=== PATIENT | female | born 1990 | race Caucasian/White ===

== ENCOUNTER 2016-11-09 13:34 | Emergency (ER) | payer MEDICAID ==
[~2016-11-09] VITALS: Ht 160 cm; Wt 61.2 kg
--- NOTE | 2016-11-09 14:08 | ED General ---
General Chief Complaint: Abdominal/GI Problems Stated Complaint: ABD PAIN/VOMITING 9 WKS PREG Source of Information: Patient Exam Limitations: No Limitations History of Present Illness Time Seen by Provider: 14:07 Initial Comments To ER with abdominal pain, vomiting, pain in her bones and skin from her hair to her toenails that just started today. She is 9 weeks gestation and just had an outpatient ultrasound done here earlier today. She does not have vaginal bleeding. She also reports constipation with no bowel movement for 2 weeks. She has seen the [facility] in [place] for this, [facility] at [place] for this. She states that she did have an abdominal x-ray done to evaluate her constipation 2 days ago at [facility] in [place] and was told this was normal. Timing/Duration: 1-2 Days Severity: Moderate Associated Systoms: Nausea/Vomiting Allergies and Home Medications Allergies Coded Allergies: codeine (Verified Allergy, Unknown, 11/09/16) phenazopyridine (Verified Allergy, Unknown, 11/09/16) promethazine (Verified Allergy, Unknown, 11/09/16) Home Medications Cephalexin 500 Mg Capsule, 500 MG PO TID for 15 Days, #15 Prescribed by: WHIT SNELL on 11/09/16 1540 Ondansetron 8 Mg Tab.rapdis, 8 MG PO Q6H PRN for NAUSEA/VOMITING-1ST LINE, #5 Prescribed by: WHIT SNELL on 11/09/16 1539 Polyethylene Glycol 3350 17 Gm Powd.pack, 17 GM PO BID, #8 Prescribed by: WHIT SNELL on 11/09/16 1539 Constitutional: see HPI EENTM: see HPI Respiratory: no symptoms reported Cardiovascular: no symptoms reported Genitourinary: no symptoms reported Musculoskeletal: no symptoms reported Skin: no symptoms reported Psychiatric/Neurological: No Symptoms Reported Hematologic/Lymphatic: No Symptoms Reported Past Zromhnr-Ptzppq-Vljadx Hx Patient Social History Recent Foreign Travel: No Contact w/Someone Who Travel: No Physical Exam Vital Signs Vital Sign - Last 12Hours 11/09/16 11/09/16 14:04 17:25 Temp 97.5 Pulse 88 Resp 18 B/P (MAP) 125/87 Pulse Ox 98 Capillary Refill : General Appearance: No Apparent Distress, WD/WN, Other (tearful, sobbing saying that she hurts everywhere) HEENT: PERRL/EOMI, TMs Normal Neck: Full Range of Motion, Normal Inspection Respiratory: No Accessory Muscle Use, No Respiratory Distress Gastrointestinal: Soft, Other (bowel sounds are normal. Abdomen is flat. It is tender to palpation) Extremity: Normal Capillary Refill, Normal Inspection Neurologic/Psychiatric: Alert, Oriented x3, No Motor/Sensory Deficits Skin: Normal Color, Warm/Dry Progress/Results/Core Measures Results/Orders Lab Results Laboratory Tests Test 11/09/16 14:20 11/09/16 15:15 Range/Units White Blood Count 10.0 4.3-11.0 10^3/uL Red Blood Count 4.75 4.35-5.85 10^6/uL Hemoglobin 14.6 11.5-16.0 G/DL Hematocrit 40 35-52 % Mean Corpuscular Volume 85 80-99 FL Mean Corpuscular Hemoglobin 31 25-34 PG Mean Corpuscular Hemoglobin Concent 36 32-36 G/DL Red Cell Distribution Width 11.4 10.0-14.5 % Platelet Count 290 130-400 10^3/uL Mean Platelet Volume 9.8 7.4-10.4 FL Neutrophils (%) (Auto) 77 H 42-75 % Lymphocytes (%) (Auto) 16 12-44 % Monocytes (%) (Auto) 6 0-12 % Eosinophils (%) (Auto) 0 0-10 % Basophils (%) (Auto) 0 0-10 % Neutrophils # (Auto) 7.7 1.8-7.8 X 10^3 Lymphocytes # (Auto) 1.6 1.0-4.0 X 10^3 Monocytes # (Auto) 0.6 0.0-1.0 X 10^3 Eosinophils # (Auto) 0.0 0.0-0.3 10^3/uL Basophils # (Auto) 0.0 0.0-0.1 10^3/uL Sodium Level 135 135-145 MMOL/L Potassium Level 3.9 3.6-5.0 MMOL/L Chloride Level 100 98-107 MMOL/L Carbon Dioxide Level 22 21-32 MMOL/L Anion Gap 13 5-14 MMOL/L Blood Urea Nitrogen 8 7-18 MG/DL Creatinine 0.71 0.60-1.30 MG/DL Estimat Glomerular Filtration Rate > 60 BUN/Creatinine Ratio 11 Glucose Level 89 70-105 MG/DL Calcium Level 9.8 8.5-10.1 MG/DL Human Chorionic Gonadotropin, Quant 702568 H <5 MIU/ML Urine Color YELLOW Urine Clarity SLIGHTLY CLOUDY Urine pH 6 5-9 Urine Specific Comfort 1.020 1.016-1.022 Urine Protein 2+ H NEGATIVE Urine Glucose (UA) NEGATIVE NEGATIVE Urine Ketones 4+ H NEGATIVE Urine Nitrite NEGATIVE NEGATIVE Urine Bilirubin NEGATIVE NEGATIVE Urine Urobilinogen NORMAL NORMAL MG/DL Urine Leukocyte Esterase 2+ H NEGATIVE Urine RBC (Auto) NEGATIVE NEGATIVE Urine RBC NONE /HPF Urine WBC 10-25 H /HPF Urine Squamous Epithelial Cells 10-25 H /HPF Urine Crystals NONE /LPF Urine Bacteria MODERATE H /HPF Urine Casts NONE /LPF Urine Mucus LARGE H /LPF Urine Culture Indicated YES Urine Opiates Screen NEGATIVE NEGATIVE Urine Oxycodone Screen POSITIVE H NEGATIVE Urine Methadone Screen NEGATIVE NEGATIVE Urine Propoxyphene Screen NEGATIVE NEGATIVE Urine Barbiturates Screen NEGATIVE NEGATIVE Ur Tricyclic Antidepressants Screen NEGATIVE NEGATIVE Urine Phencyclidine Screen NEGATIVE NEGATIVE Urine Amphetamines Screen NEGATIVE NEGATIVE Urine Methamphetamines Screen NEGATIVE NEGATIVE Urine Benzodiazepines Screen POSITIVE H NEGATIVE Urine Cocaine Screen NEGATIVE NEGATIVE Urine Cannabinoids Screen POSITIVE H NEGATIVE My Orders Orders - WHIT SNELL FINANCE ASSOCIATE Cbc With Automated Diff (11/09/16 14:06) Basic Metabolic Panel (11/09/16 14:06) Ua Culture If Indicated (11/09/16 14:06) Hcg,Quantitative (11/09/16 14:06) Ondansetron Oral Dissolve Tab (Zofran (11/09/16 14:15) Diphenhydramine Tablet (Benadryl Tablet) (11/09/16 14:15) Fentanyl Injection (Sublimaze Injection (11/09/16 14:45) Drug Screen Stat (Urine) (11/09/16 14:44) Diphenhydramine Injection (Benadryl Inje (11/09/16 15:15) Diphenhydramine Injection (Benadryl Inje (11/09/16 15:08) Ns Iv 1000 Ml (Sodium Chloride 0.9%) (11/09/16 15:30) Progesterone (11/09/16 15:36) Urine Culture (11/09/16 15:15) Ns Iv 1000 Ml (Sodium Chloride 0.9%) (11/09/16 15:45) Ceftriaxone Injection (Rocephin Injectio (11/09/16 15:45) Ondansetron Injection (Zofran Injectio (11/09/16 17:15) Medications Given in ED Current Medications Medications Dose Ordered Sig/Alli Route Start Time Stop Time Status Last Admin Dose Admin Ceftriaxone Sodium 1000 mg/ Sodium Chloride 50 ml @ 100 mls/hr ONCE ONCE IV 11/09/16 15:45 11/09/16 16:14 DC 11/09/16 15:49 100 MLS/HR Diphenhydramine HCl 25 mg ONCE ONCE IVP 11/09/16 15:15 11/09/16 15:16 DC 11/09/16 15:12 25 MG Diphenhydramine HCl 25 mg ONCE ONCE PO 11/09/16 14:15 11/09/16 14:16 DC 11/09/16 14:24 25 MG Fentanyl Citrate 50 mcg ONCE ONCE IVP 11/09/16 14:45 11/09/16 14:46 DC 11/09/16 14:56 50 MCG Ondansetron HCl 4 mg ONCE ONCE IVP 11/09/16 17:15 11/09/16 17:17 DC 11/09/16 17:15 4 MG Ondansetron HCl 4 mg ONCE ONCE PO 11/09/16 14:15 11/09/16 14:16 DC 11/09/16 14:24 4 MG Vital Signs/I&O Vital Sign - Last 12Hours 11/09/16 11/09/16 11/09/16 14:04 14:56 17:25 Temp 97.5 97.5 97.5 Pulse 88 70 Resp 18 B/P (MAP) 125/87 Pulse Ox 98 99 Diagnostic Imaging Diagonstic Imaging: Ultrasound Comments VIA [facility]. [place], [place] NAME: JEWELL ANNE [facility] REC#: [id number] PT STATUS: REG CLI : 1990 PHYSICIAN: ROSE RILEY ADMIT DATE: 11/09/16/RAD Draft Date of Exam:11/09/16 US OB SINGLE FETUS<14 [id number] PROCEDURE: US OB SINGLE FETUS <14 WKS. TECHNIQUE: Multiple real-time grayscale images were obtained over the gravid uterus in various projections. Indication: Severe pelvic pain, threatened . Comparison: None. Discussion: Transabdominal sonographic evaluation of the pelvis was performed. Simple appearing saclike structures noted within the endometrium which likely represents an endometrial sac. Mean sac diameter is 3.3 cm. There is no pole or yolk sac identified. Findings are consistent with a failed intrauterine / demise. No abnormal adnexal mass or fluid. Impression: 1. Empty gestational sac is noted with mean sac diameter measuring 3.3 cm. Findings are consistent with failed early . Note to criminal justice program director: This is a critical finding, please call results. Report was called to Rose/LAKIA c/o Rose Riley by leta at 2:00 pm. Dictated on workstation # [id number] Dict: 11/09/16 1346 Trans: 11/09/16 1357 LETA [id number] Interpreted by: XIMENA CHAVIRA MD Electronically signed by: Departure Communication Progress Notes 2576-I've called [facility] [place] who reports that patient did have a quantitative beta hCG done 2 days ago that was 111,700. Today here it is 147,000 1536-after discussing the case with Dr. STEPHEN, we will treat this as a potentially viable given the rising beta hCG and hold off on the abdomen x-ray. Patient should follow-up with him on Saturday and he would like a serum progesterone ordered to her labs. Impression Impression: Primary Impression: Nausea and vomiting Additional Impression: Threatened miscarriage Disposition: 01 HOME, SELF-CARE Condition: Stable Departure-Patient Inst. Decision time for Depature: 15:04 Referrals: [facility] (PCP) Primary Care Physician LEEANN STEPHEN DENNIS G MD MCNULTY, ERIN N MD SHAW, ANGELA C DO Patient Instructions: Miscarriage (DC), Urinary Tract Infection, Adult (DC) Add. Discharge Instructions: 1. Call today or Saturday morning to make an appointment with one of the obstetricians 2. Expect vaginal bleeding to occur at some point during the next few days All discharge instructions reviewed with patient and/or family. Voiced understanding. Scripts Cephalexin (Keflex) 500 Mg Capsule 500 MG PO TID for 15 Days, #15 CAP Prov: WHIT SNELL FINANCE ASSOCIATE 11/09/16 Ondansetron (Zofran Odt) 8 Mg Tab.rapdis 8 MG PO Q6H Y for NAUSEA/VOMITING-1ST LINE, #5 TAB Prov: WHIT SNELL APRN 11/09/16 Polyethylene Glycol 3350 (Miralax) 17 Gm Powd.pack 17 GM PO BID, #8 EACH Prov: WHIT SNELL APRN 11/09/16 WHIT SNELL APRN Nov 09, 2016 14:08
[2016-11-09] MEDS ORDERED: diphenhydrAMINE 25 MG TAB (BENADRYL) PO ONE (14:15)
[2016-11-09] MEDS ORDERED: ONDANSETRON 4 MG (ZOFRAN) ORAL DISSOLVE TAB PO ONE (14:15)
[2016-11-09 14:39] LABS: BASOPHILS % (AUTO) 0 % (0-10); EOSINOPHILS % (AUTO) 0 % (0-10); LYMPHOCYTES # (AUTO) 1.6 X 10^3 (1.0-4.0); LYMPHOCYTES % (AUTO) 16 % (12-44); MEAN CORPUSCULAR HEMOGLOBIN 31 PG (25-34); MEAN CORPUSCULAR HGB CONC 36 G/DL (32-36); MEAN CORPUSCULAR VOLUME 85 FL (80-99); MEAN PLATELET VOLUME 9.8 FL (7.4-10.4); MONOCYTES # (AUTO) 0.6 X 10^3 (0.0-1.0); MONOCYTES % (AUTO) 6 % (0-12); NEUTROPHILS # (AUTO) 7.7 X 10^3 (1.8-7.8); NEUTROPHILS % (AUTO) 77 % (42-75); PLATELET COUNT 290 10^3/uL (130-400); RED BLOOD COUNT 4.75 10^6/uL (4.35-5.85); RED CELL DISTRIBUTION WIDTH 11.4 % (10.0-14.5)
[2016-11-09] MEDS ORDERED: fentaNYL INJECTION 100 MCG/2 ML AMP IVP ONE (14:45)
[2016-11-09 14:50] LABS: ANION GAP 13 MMOL/L (5-14); BLOOD UREA NITROGEN 8 MG/DL (7-18); BUN/CREATININE RATIO 11; CALCIUM 9.8 MG/DL (8.5-10.1); CARBON DIOXIDE 22 MMOL/L (21-32); CHLORIDE 100 MMOL/L (98-107); CREATININE SERUM 0.71 MG/DL (0.60-1.30); GFR ESTIMATED > 60; GLUCOSE 89 MG/DL (70-105); POTASSIUM 3.9 MMOL/L (3.6-5.0); SODIUM 135 MMOL/L (135-145)
[2016-11-09] MEDS ORDERED: diphenhydrAMINE 50 MG/ML INJ (BENADRYL) ONE (15:08)
[2016-11-09] MEDS ORDERED: diphenhydrAMINE 50 MG/ML INJ (BENADRYL) IVP ONE (15:15)
[2016-11-09 15:20] LABS: BILIRUBIN,URINE NEGATIVE (NEGATIVE); KETONES,URINE 4+ (NEGATIVE); LEUKOCYTE ESTERASE ,URINE 2+ (NEGATIVE); NITRITE,URINE NEGATIVE (NEGATIVE); PH,URINE 6 (5-9); PROTEIN,URINE 2+ (NEGATIVE); UROBILINOGEN,URINE NORMAL (NORMAL)
[2016-11-09] MEDS ORDERED: NS IV 1000 ML 1,000 ML IV SCH ×2 (15:30→15:45)
[2016-11-09] MEDS ORDERED: POLY17PO6 PO (15:39)
[2016-11-09] MEDS ORDERED: ONDA8TAB9 PO (15:39)
[2016-11-09] MEDS ORDERED: CEPH-507 PO (15:40)
[2016-11-09] MEDS ORDERED: cefTRIAXone INJECTION 1,000 MG in NS (IVPB) 50 ML IV ONE (15:45)
[2016-11-09] MEDS ORDERED: ONDANSETRON 4 MG/2 ML (SDV) Z0FRAN IVP ONE (17:15)
[2016-11-09 17:25] VITALS: BP 118/70
--- OUTSIDE RECORDS SUMMARY | 2016-12-13 22:08 | XMS REPORT | Clinical Summary ---
Author Author Admin, KATERINE Organization [facility] Address Unknown Phone Unavailable Allergies, Adverse Reactions, Alerts Allergy Name Reaction Description Start Date Severity Status Provider Allergies Unknown Conditions or Problems Problem Name Problem Code Onset Date Status Entry Date Provider Comment Standard Description Annotate Supervision of other normal V22.1 Active Julieth Rice MD Supervision of other normal Nausea and vomiting 787.01 Active Julieth Rice MD Nausea with vomiting Anxiety 300.00 Active Julieth Rice MD Anxiety state, unspecified Marijuana abuse 305.20 Active Julieth Rice MD Cannabis abuse, unspecified use History of ectopic V13.29 Active Julieth Rice MD Personal history of other genital system and obstetric disorders Medication List Medication Instructions Start Date Stop Date Generic Name NDC Status Provider Patient Instruction HYDROXYZINE HCL 25 MG TAB 1/2 - 1 TID PRN nerves HYDROXYZINE HCL 40983880426 Active Julieth Rice MD Active BUSPIRONE HCL 7.5 MG ORAL TABS 1 pill twice daily, for anxiety BUSPIRONE HCL 72879023187 Active Julieth Rice MD Active REGLAN 10 MG TAB 1 po TID PRN Nausea METOCLOPRAMIDE HCL 61053164360 Active Julieth Rice MD Active [facility] GUMMY 0.4-113.5 MG ORAL CHEW 2 gummy's daily AWT-SEQ-ZI-FISH OIL 46575269741 Active Julieth Rice MD Active DICLEGIS 10-10 MG ORAL TBEC DOXYLAMINE-PYRIDOXINE 56042768715 Active Julieth Rice MD Active Procedures Code Procedure Name Date Entry Date Standard Description CPT-19028Y Sono OB transvag <14 weeks ([place] Only) 15:33:51 CDT CPT-54064 IV push single initial drug 13:35:24 CDT CPT-44684 IV Infusion < 1 hr 13:35:23 CDT CPT-J2405 Zofran 4mg 13:35:23 CDT CPT-J7030 Normal Saline 1000 mL 13:35:22 CDT CPT-80586 Spec Collection and Handling Fee 11:53:14 CDT CPT-20868 Visit 11:53:14 CDT
--- OUTSIDE RECORDS SUMMARY | 2016-12-13 22:08 | XMS REPORT | Continuity of Care Document ---
Author Author [facility] Address Unknown Phone Unavailable Allergies Medications Problems Procedures Results Encounters ACCT No. Visit Date/Time Discharge Status Pt. Type Provider Facility Loc./Unit Complaint [id number] 10/19/2015 11:32:49 ACT Outpatient Angel Garcia [id number] 10/18/2015 16:47:26 ACT Outpatient Angel Garcia
--- OUTSIDE RECORDS SUMMARY | 2016-12-13 22:08 | XMS REPORT | Clinical Summary ---
Author Author Admin, KATERINE Organization [facility] Address Unknown Phone Unavailable Allergies, Adverse Reactions, [...] Generic Name NDC Status Provider Patient Instruction ZOFRAN 4 MG TABS 1 po q6hr PRN Nausea ONDANSETRON HCL 11222794934 Active Miranda Love LPN Active HYDROXYZINE HCL 25 MG TAB 1/2 - 1 TID PRN nerves HYDROXYZINE HCL 29073392958 Active Julieth Rice MD Active BUSPIRONE HCL 7.5 MG ORAL TABS 1 pill twice daily, for anxiety BUSPIRONE HCL 70128350158 Active Julieth Rice MD Active REGLAN 10 MG TAB 1 po TID PRN Nausea METOCLOPRAMIDE HCL 42115090046 Active Julieth Rice MD Active [facility] GUMMY 0.4-113.5 MG ORAL CHEW 2 gummy's daily UHH-NHN-PW-FISH OIL 33881562807 Active Julieth Rice MD Active DICLEGIS 10-10 MG ORAL TBEC DOXYLAMINE-PYRIDOXINE 20385579933 Active Julieth Rice MD Active Immunizations Vaccine Administration Date Value Standard Description hepatitis B vaccine series no hepatitis B vaccine, unspecified formulation Vital Signs Date Name Value Unit Range Description blood pressure, diastolic - 8462-4 87 mm[Hg] BP hernandez blood pressure, systolic - 8480-6 131 mm[Hg] BP sys height E&M - 8302-2 66 [in_us] Bdy height pulse rate E&M - 8867-4 100 /min Heart rate temperature E&M 98.3 [degF] Body temperature weight E&M - 3141-9 137 [lb_av] Weight Measured Diagnostic Results Date Name Value Unit Range Description Office Visit: Initial OB Visit - Genetics/fertility test, date 10/08/2016 Office Visit: Initial OB Visit - Microbiology Herpes Simplex Virus Genital no Office Visit: Initial OB Visit - Urinalysis protein, urine, semiquantitative (dipstick) UC glucose, urine, semiquantitative UC nitrite, urine, semiquantitative UC Procedures Code Procedure Name Date Entry Date Standard Description CPT-30055U Sono OB transvag <14 weeks ([place] Only) 15:33:51 CDT CPT-73079 IV push single initial drug 13:35:24 CDT CPT-39286 IV Infusion < 1 hr 13:35:23 CDT CPT-J2405 Zofran 4mg 13:35:23 CDT CPT-J7030 Normal Saline 1000 mL 13:35:22 CDT CPT-76378 Spec Collection and Handling Fee 11:53:14 CDT CPT-20671 Visit 11:53:14 CDT
--- OUTSIDE RECORDS SUMMARY | 2016-12-13 22:08 | XMS REPORT | Clinical Summary ---
Author Author Admin, KATERINE Organization [facility] Address Unknown Phone Unavailable Allergies, Adverse Reactions, [...] - 1 TID PRN nerves HYDROXYZINE HCL 63980982571 Active Julieth Rice MD Active BUSPIRONE HCL 7.5 MG ORAL TABS 1 pill twice daily, for anxiety BUSPIRONE HCL 84391744230 Active Julieth Rice MD Active REGLAN 10 MG TAB 1 po TID PRN Nausea METOCLOPRAMIDE HCL 28770202405 Active Julieth Rice MD Active [facility] GUMMY 0.4-113.5 MG ORAL CHEW 2 gummy's daily OCS-YAI-KA-FISH OIL 75827443840 Active Julieth Rice MD Active DICLEGIS 10-10 MG ORAL TBEC DOXYLAMINE-PYRIDOXINE 79826706510 Active Jluieth Rice MD Active Immunizations Vaccine Administration Date [...] Procedure Name Date Entry Date Standard Description CPT-48167F Sono OB transvag <14 weeks ([place] Only) 15:33:51 CDT CPT-87635 IV push single initial drug 13:35:24 CDT CPT-44764 IV Infusion < 1 hr 13:35:23 CDT CPT-J2405 Zofran 4mg 13:35:23 CDT CPT-J7030 Normal Saline 1000 mL 13:35:22 CDT CPT-16757 Spec Collection and Handling Fee 11:53:14 CDT CPT-03768 Visit 11:53:14 CDT
--- OUTSIDE RECORDS SUMMARY | 2016-12-13 22:08 | XMS REPORT | Clinical Summary ---
Author Author Admin, KATERINE Organization [facility] Address Unknown Phone Unavailable Allergies, Adverse Reactions, Alerts Allergy Name Reaction Description Start Date Severity Status Provider Allergies Unknown Conditions or Problems Problem Name Problem Code Onset Date Status Entry Date Provider Comment Standard Description Annotate Supervision of other normal V22.1 Active Julieth Rice MD Supervision of other normal Nausea and vomiting 787.01 Active Julieth iRce MD Nausea with vomiting Anxiety 300.00 Active [...] - 1 TID PRN nerves HYDROXYZINE HCL 13381435594 Active Julieth Rice MD Active BUSPIRONE HCL 7.5 MG ORAL TABS 1 pill twice daily, for anxiety BUSPIRONE HCL 84094628375 Active Julieth Rice MD Active REGLAN 10 MG TAB 1 po TID PRN Nausea METOCLOPRAMIDE HCL 77715896455 Active Julieth Rice MD Active [facility] GUMMY 0.4-113.5 MG ORAL CHEW 2 gummy's daily SWC-AKC-LT-FISH OIL 19526708579 Active Julieth Rice MD Active DICLEGIS 10-10 MG ORAL TBEC DOXYLAMINE-PYRIDOXINE 16785409226 Active Julieth Rice MD Active Immunizations Vaccine [...] Procedure Name Date Entry Date Standard Description CPT-44048J Sono OB transvag <14 weeks ([place] Only) 15:33:51 CDT CPT-22121 IV push single initial drug 13:35:24 CDT CPT-80925 IV Infusion < 1 hr 13:35:23 CDT CPT-J2405 Zofran 4mg 13:35:23 CDT CPT-J7030 Normal Saline 1000 mL 13:35:22 CDT CPT-84147 Spec Collection and Handling Fee 11:53:14 CDT CPT-94533 Visit 11:53:14 CDT
--- OUTSIDE RECORDS SUMMARY | 2016-12-13 22:08 | XMS REPORT | Clinical Summary ---
Author Author Admin, KATERINE Organization [facility] Address Unknown Phone Unavailable Allergies, Adverse Reactions, [...] 1 po q6hr PRN Nausea ONDANSETRON HCL 73907337076 Active Miranda Love LPN Active HYDROXYZINE HCL 25 MG TAB 1/2 - 1 TID PRN nerves HYDROXYZINE HCL 35823965143 Active Julieth Rice MD Active BUSPIRONE HCL 7.5 MG ORAL TABS 1 pill twice daily, for anxiety BUSPIRONE HCL 55278763474 Active Julieth Rice MD Active REGLAN 10 MG TAB 1 po TID PRN Nausea METOCLOPRAMIDE HCL 18284402272 Active Julieth Rice MD Active [facility] GUMMY 0.4-113.5 MG ORAL CHEW 2 gummy's daily FRI-WWN-VZ-FISH OIL 12266458150 Active Julieth Rice MD Active DICLEGIS 10-10 MG ORAL TBEC DOXYLAMINE-PYRIDOXINE 16720306593 Active Julieth Rice MD Active Immunizations Vaccine [...] Procedure Name Date Entry Date Standard Description CPT-39957Y Sono OB transvag <14 weeks ([place] Only) 15:33:51 CDT CPT-30501 IV push single initial drug 13:35:24 CDT CPT-87184 IV Infusion < 1 hr 13:35:23 CDT CPT-J2405 Zofran 4mg 13:35:23 CDT CPT-J7030 Normal Saline 1000 mL 13:35:22 CDT CPT-84780 Spec Collection and Handling Fee 11:53:14 CDT CPT-67864 Visit 11:53:14 CDT
--- OUTSIDE RECORDS SUMMARY | 2016-12-13 22:08 | XMS REPORT | Clinical Summary ---
Author Author Admin, KATERINE Organization [facility] Address Unknown Phone Unavailable Allergies, Adverse Reactions, [...] - 1 TID PRN nerves HYDROXYZINE HCL 67716170394 Active Julieth Rice MD Active BUSPIRONE HCL 7.5 MG ORAL TABS 1 pill twice daily, for anxiety BUSPIRONE HCL 11622383424 Active Julieth Rice MD Active REGLAN 10 MG TAB 1 po TID PRN Nausea METOCLOPRAMIDE HCL 79451142908 Active Julieth Rice MD Active [facility] GUMMY 0.4-113.5 MG ORAL CHEW 2 gummy's daily FRH-MHP-IG-FISH OIL 89622305239 Active Julieth Rice MD Active DICLEGIS 10-10 MG ORAL TBEC DOXYLAMINE-PYRIDOXINE 13159280400 Active Julieth Rice MD Active Immunizations Vaccine [...] Procedure Name Date Entry Date Standard Description CPT-10498Z Sono OB transvag <14 weeks ([place] Only) 15:33:51 CDT CPT-18285 IV push single initial drug 13:35:24 CDT CPT-14208 IV Infusion < 1 hr 13:35:23 CDT CPT-J2405 Zofran 4mg 13:35:23 CDT CPT-J7030 Normal Saline 1000 mL 13:35:22 CDT CPT-46670 Spec Collection and Handling Fee 11:53:14 CDT CPT-49098 Visit 11:53:14 CDT
--- OUTSIDE RECORDS SUMMARY | 2016-12-13 22:08 | XMS REPORT ---
Author Angel Mckeon [facility] Address [address] [place], [place] [id number] Care Team Providers Care First Aid Officer Name Role Phone Angel Garcia PCP Unavailable Allergies and Adverse Reactions Name Reaction Notes codeine sulfate Plan of Treatment Planned Activity Comments Planned Date Planned Time Plan/Goal OB US < 14 WKS SINGLE FETUS 10/18/2015 12:00 AM COMPLETE CBC W/AUTO DIFF WBC 10/18/2015 12:00 AM CHORIONIC GONADOTROPIN ASSAY 10/18/2015 12:00 AM CHYLMD TRACH DNA AMP PROBE 10/18/2015 12:00 AM N.GONORRHOEAE DNA AMP PROB 10/18/2015 12:00 AM Medications Not available. Problem List Not available. Vital Signs Date Time BP-Sys(mm[Hg] BP-Karyn(mm[Hg]) HR(bpm) RR(rpm) Temp WT HT HC BMI BSA BMI Percentile O2 Sat(%) 10/18/2015 3:51:00 PM 109 mmHg 54 mmHg 57 bpm 97.3 F 143 lbs 66 in 23.08 kg/m2 1.74 m2 Social History Name Description Comments Tobacco Current every day smoker History of Procedures Date Ordered Description Order Status 10/18/2015 4:07 PM URINE TEST Reviewed 10/18/2015 12:00 AM SPECIMEN HANDLING OFFICE-LAB Reviewed Results Summary Data and Description Results 10/18/2015 4:07 PM Test, Urine positive History Of Immunizations Not available. History of Past Illness Name Date of Onset Comments No significant medical history Vaginal bleeding in Oct 18 2015 4:19PM Threatened in early Oct 18 2015 4:19PM Threatened in early Oct 18 2015 3:58PM Payers Insurance Name Company Name Plan Name Plan Number Policy Number Policy Group Number Start Date [facility] Comm [id number] N/A History of Encounters Visit Date Visit Type Provider 10/18/2015 Office visit Angel Garcia MD
--- OUTSIDE RECORDS SUMMARY | 2016-12-13 22:09 | XMS REPORT | Clinical Summary ---
Author Author Admin, KATERINE Organization [facility] Address Unknown Phone Unavailable Allergies, Adverse [...] 1 po q6hr PRN Nausea ONDANSETRON HCL 59605781082 Active Miranda Love LPN Active HYDROXYZINE HCL 25 MG TAB 1/2 - 1 TID PRN nerves HYDROXYZINE HCL 46136665533 Active Julieth Rice MD Active BUSPIRONE HCL 7.5 MG ORAL TABS 1 pill twice daily, for anxiety BUSPIRONE HCL 07262049580 Active Julieth Rice MD Active REGLAN 10 MG TAB 1 po TID PRN Nausea METOCLOPRAMIDE HCL 04930475536 Active Julieth Rice MD Active [facility] GUMMY 0.4-113.5 MG ORAL CHEW 2 gummy's daily PIG-KNZ-OY-FISH OIL 96156863026 Active Julieth Rice MD Active DICLEGIS 10-10 MG ORAL TBEC DOXYLAMINE-PYRIDOXINE 27656539936 Active Julieth Rice MD Active Immunizations Vaccine [...] Procedure Name Date Entry Date Standard Description CPT-61370S Sono OB transvag <14 weeks ([place] Only) 15:33:51 CDT CPT-85138 IV push single initial drug 13:35:24 CDT CPT-72956 IV Infusion < 1 hr 13:35:23 CDT CPT-J2405 Zofran 4mg 13:35:23 CDT CPT-J7030 Normal Saline 1000 mL 13:35:22 CDT CPT-50718 Spec Collection and Handling Fee 11:53:14 CDT CPT-48913 Visit 11:53:14 CDT
--- OUTSIDE RECORDS SUMMARY | 2016-12-13 22:09 | XMS REPORT | Clinical Summary ---
Author Author Admin, KATERINE Organization [facility] Address Unknown Phone Unavailable Allergies, Adverse [...] - 1 TID PRN nerves HYDROXYZINE HCL 07267399187 Active Julieth Rice MD Active BUSPIRONE HCL 7.5 MG ORAL TABS 1 pill twice daily, for anxiety BUSPIRONE HCL 39356068892 Active Julieth Rice MD Active REGLAN 10 MG TAB 1 po TID PRN Nausea METOCLOPRAMIDE HCL 92071879868 Active Julieth Rice MD Active [facility] GUMMY 0.4-113.5 MG ORAL CHEW 2 gummy's daily MSD-XBF-OI-FISH OIL 27371553236 Active Julieth Rice MD Active DICLEGIS 10-10 MG ORAL TBEC DOXYLAMINE-PYRIDOXINE 02523621050 Active Julieth Rice MD Active Immunizations Vaccine [...] Procedure Name Date Entry Date Standard Description [id number]-[id number] Sono OB transvag <14 weeks ([place] Only) 15:33:51 CDT CPT-20337 IV push single initial drug 13:35:24 CDT CPT-25799 IV Infusion < 1 hr 13:35:23 CDT CPT-J2405 Zofran 4mg 13:35:23 CDT CPT-J7030 Normal Saline 1000 mL 13:35:22 CDT CPT-11928 Spec Collection and Handling Fee 11:53:14 CDT CPT-85375 Visit 11:53:14 CDT
--- OUTSIDE RECORDS SUMMARY | 2016-12-13 22:09 | XMS REPORT ---
Author Angel Mckeon [facility] Address [address] [place], [place] [id number] Care Team Providers Care Hypnotherapist Name Role Phone Angel Garcia PCP Unavailable Allergies and Adverse Reactions Name Reaction Notes codeine sulfate Plan of Treatment Planned Activity Comments Planned Date Planned Time Plan/Goal CHORIONIC GONADOTROPIN ASSAY 10/18/2015 12:00 AM CHYLMD TRACH DNA AMP PROBE 10/18/2015 12:00 AM N.GONORRHOEAE DNA AMP PROB 10/18/2015 12:00 AM CHORIONIC GONADOTROPIN ASSAY 10/25/2015 12:00 AM Medications Not available. Problem List Not available. Vital Signs Date Time BP-Sys(mm[Hg] BP-Karyn(mm[Hg]) HR(bpm) RR(rpm) Temp WT HT HC BMI BSA BMI Percentile O2 Sat(%) 10/19/2015 10:37:00 AM 116 mmHg 60 mmHg 90 bpm 97.1 F 143 lbs 66 in 23.08 kg/m2 1.74 m2 10/18/2015 3:51:00 PM 109 mmHg 54 mmHg 57 bpm 97.3 F 143 lbs 66 in 23.0806 kg/m 1.738 m Social History Name Description Comments Tobacco Current every day smoker History of Procedures Date Ordered Description Order Status 10/18/2015 4:07 PM URINE TEST Reviewed 10/18/2015 12:00 AM OB US < 14 WKS SINGLE FETUS Returned 10/18/2015 12:00 AM COMPLETE CBC W/AUTO DIFF WBC Returned 10/18/2015 12:00 AM SPECIMEN HANDLING OFFICE-LAB Reviewed Results Summary Data and Description Results 10/18/2015 4:07 PM Test, Urine positive History Of Immunizations Not available. History of Past Illness Name Date of Onset Comments No significant medical history Vaginal bleeding in Oct 18 2015 4:19PM Threatened in early Oct 18 2015 4:19PM Threatened in early Oct 18 2015 3:58PM Complete Oct 19 2015 10:42AM Payers Insurance Name Company Name Plan Name Plan Number Policy Number Policy Group Number [facility] Date [facility] [id number] N/A History of Encounters Visit Date Visit Type Provider 10/19/2015 Office visit Angel Garcia MD 10/18/2015 Office visit Angel Garcia MD
--- OUTSIDE RECORDS SUMMARY | 2016-12-13 22:09 | XMS REPORT | Clinical Summary ---
Author Author Admin, KATERINE Organization [facility] Address Unknown Phone Unavailable Allergies, Adverse [...] - 1 TID PRN nerves HYDROXYZINE HCL 01637885390 Active Julieth Rice MD Active BUSPIRONE HCL 7.5 MG ORAL TABS 1 pill twice daily, for anxiety BUSPIRONE HCL 90802223445 Active Julieth Rice MD Active REGLAN 10 MG TAB 1 po TID PRN Nausea METOCLOPRAMIDE HCL 42701970112 Active Julieth Rice MD Active [facility] GUMMY 0.4-113.5 MG ORAL CHEW 2 gummy's daily BIS-BAL-QO-FISH OIL 02769594301 Active Julieth Rice MD Active DICLEGIS 10-10 MG ORAL TBEC DOXYLAMINE-PYRIDOXINE 36959746370 Active Julieth Rice MD Active Procedures Code Procedure Name Date Entry Date Standard Description CPT-[id number] Sono OB transvag <14 weeks ([place] Only) 15:33:51 CDT CPT-63577 IV push single initial drug 13:35:24 CDT CPT-08596 IV Infusion < 1 hr 13:35:23 CDT CPT-J2405 Zofran 4mg 13:35:23 CDT CPT-J7030 Normal Saline 1000 mL 13:35:22 CDT CPT-04603 Spec Collection and Handling Fee 11:53:14 CDT CPT-19192 Visit 11:53:14 CDT
--- OUTSIDE RECORDS SUMMARY | 2016-12-13 22:09 | XMS REPORT | Clinical Summary ---
Author Author Admin, KATERINE Organization [facility] Address Unknown Phone Unavailable Allergies, Adverse [...] - 1 TID PRN nerves HYDROXYZINE HCL 11600980118 Active Julieth Rice MD Active BUSPIRONE HCL 7.5 MG ORAL TABS 1 pill twice daily, for anxiety BUSPIRONE HCL 19294183620 Active Julieth Rice MD Active REGLAN 10 MG TAB 1 po TID PRN Nausea METOCLOPRAMIDE HCL 65835577979 Active Julieth Rice MD Active [facility] GUMMY 0.4-113.5 MG ORAL CHEW 2 gummy's daily OLB-ETC-LL-FISH OIL 68396511394 Active Julieth Rice MD Active DICLEGIS 10-10 MG ORAL TBEC DOXYLAMINE-PYRIDOXINE 57801929020 Active Julieth Rice MD Active Immunizations Vaccine [...] Procedure Name Date Entry Date Standard Description CPT-01997V Sono OB transvag <14 weeks ([place] Only) 15:33:51 CDT CPT-04965 IV push single initial drug 13:35:24 CDT CPT-76556 IV Infusion < 1 hr 13:35:23 CDT CPT-J2405 Zofran 4mg 13:35:23 CDT CPT-J7030 Normal Saline 1000 mL 13:35:22 CDT CPT-18042 Spec Collection and Handling Fee 11:53:14 CDT CPT-27630 Visit 11:53:14 CDT
--- OUTSIDE RECORDS SUMMARY | 2016-12-13 22:09 | XMS REPORT ---
Author Angel Mckeon [facility] Address [address] [place], [place] [phone] Care Team Providers Care Feeder Tender Name Role Phone Angel Garcia PCP Unavailable [...] Policy Number Policy Group Number Start Date [facility] - [facility] - [facility] Comm [id number] N/A History of Encounters Visit Date Visit Type Provider 10/18/2015 Office visit Angel Garcia MD
--- OUTSIDE RECORDS SUMMARY | 2016-12-13 22:09 | XMS REPORT ---
Author Angel Mckeon [facility] Address [address] [place], [place] [phone] Care Team Providers Care Sales Development Representative Name Role Phone Angel Garcia PCP Unavailable Allergies and Adverse Reactions Name Reaction Notes codeine sulfate Plan of Treatment Planned Activity Comments Planned Date Planned Time Plan/Goal COMPLETE CBC W/AUTO DIFF WBC 10/18/2015 12:00 AM CHORIONIC GONADOTROPIN ASSAY 10/18/2015 12:00 AM OB US < 14 WKS SINGLE FETUS 10/18/2015 12:00 AM Medications Not available. Problem [...] Status 10/18/2015 4:07 PM URINE TEST Reviewed Results Summary Not available. History Of Immunizations Not available. History of Past Illness Name Date of Onset Comments No significant medical history Vaginal bleeding in Oct 18 2015 4:19PM Threatened in early Oct 18 2015 4:19PM Threatened in early Oct 18 2015 3:58PM Payers Insurance Name Company Name Plan Name Plan Number Policy Number Policy Group Number Start Date [facility] - [facility] Comm [id number] N/A History of Encounters Visit Date Visit Type Provider 10/18/2015 Office visit Angel Garcia MD
== END 2016-11-09 17:25 | disposition home or self-care (01) ==
LOC: EDUNIT# 13:34 → ER 13:36
DX: O20.0 Threatened abortion (principal); O99.611 Diseases of the digestive system complicating pregnancy, first trimester; R11.2 Nausea with vomiting, unspecified; O26.891 Other specified pregnancy related conditions, first trimester; R10.84 Generalized abdominal pain; Z3A.09 9 weeks gestation of pregnancy
CPT/HCPCS: 36415; 80048; 80306; 81000; 84144; 84702; 85025; 87088; 96374; 96375

== ENCOUNTER → 2016-11-09 | Outpatient (CLI) | payer MEDICAID ==
[~2016-11-09] MED LIST: CEPH-507 PO; ONDA8TAB9 PO; POLY17PO6 PO
--- NOTE | 2016-11-09 13:57 | Diagnostic Imaging Report ---
PROCEDURE: US OB SINGLE FETUS <14 WKS. TECHNIQUE: Multiple real-time grayscale images were obtained over the gravid uterus in various projections. Indication: Severe pelvic pain, threatened . Comparison: None. Discussion: Transabdominal sonographic evaluation of the pelvis was performed. Simple appearing saclike structures noted within the endometrium which likely represents an endometrial sac. Mean sac diameter is 3.3 cm. There is no pole or yolk sac identified. Findings are consistent with a failed intrauterine / demise. No abnormal adnexal mass or fluid. Impression: 1. Empty gestational sac is noted with mean sac diameter measuring 3.3 cm. Findings are consistent with failed early . Note to roll dough divider: This is a critical finding, please call results. Report was called to Rose/LAKIA c/o Rose Choudhary by tal at 2:00 pm. Dictated by: Dictated on workstation # [id number]
== END ==
LOC: RAD 13:17
PROVIDERS: ATTEND Nurse Practitioner Family
DX: O20.0 Threatened abortion (principal)
CPT/HCPCS: 76801; 76816

== ENCOUNTER → 2023-07-02 | Outpatient (CLI) | payer MEDICAID ==
--- NOTE | 2023-07-02 16:10 | Diagnostic Imaging Report ---
INDICATION: survey. TECHNIQUE: Multiple real-time grayscale images were obtained over the gravid uterus. COMPARISON: None FINDINGS: There is a single live fetus in a transverse presentation head to maternal right. heart rate was recorded at 138 bpm. Placenta is anterior. No previa is detected. Amniotic fluid index is 18.5 cm. Cervical length is 5.4 cm. survey demonstrates kidneys, bladder and stomach are unremarkable. brain is unremarkable. There is a four-chamber heart. There is a three-vessel cord with normal insertion. spine is unremarkable. Maternal adnexa is unremarkable. Biometrical measurements are as follows: Biparietal 5.2 cm, age 21 weeks 5 days. Head circumference 19.4 cm, age 21 weeks 5 days. Abdominal circumference 16.0 cm, age 21 weeks 1 days. Femur length 3.9 cm, age 22 weeks 4 days. Sonographic estimate age: 21 weeks 6 days. Sonographic estimated date of delivery: 11/06/23. Estimated Weight: 445 gm (+/- 65 gm). LMP percentile: 75%. heart rate: 138 beats per minute. number: 1 of 1. IMPRESSION: Single live IUP 21 weeks 6 days gestational age. Estimated date of confinement sonographically is 11/06/2023. Dictated by: Dictated on workstation # [id number]
== END ==
LOC: RAD 14:08
PROVIDERS: ATTEND Obstetrics & Gynecology
DX: Z34.92 Encounter for supervision of normal pregnancy, unspecified, second trimester (principal); Z3A.21 21 weeks gestation of pregnancy
CPT/HCPCS: 76805